=== PATIENT | female | born 2000 | race African-American/Black ===

== ENCOUNTER 2021-03-27 09:13 | Emergency (ER) | payer OTHER ==
[~2021-03-27] VITALS: Ht 157.5 cm; Wt 56.2 kg
[2021-03-27 09:21] VITALS: BP 132/90
--- NOTE | 2021-03-27 09:27 | NUR ---
BIB SELF C/O RIGHT UPPER TOOTH PAIN X 4 DAYS AND C/O RIGHT FACE SWELLING X 2 DAYS. PMH: ASTHMA
--- NOTE | 2021-03-27 09:48 | NUR ---
Patient being evaluated by DR SHAH at [facility].
[2021-03-27] MEDS ORDERED: HYDROcodone/APAP 5/325 MG 1 TAB TAB PO ONE (09:55)
[2021-03-27] MEDS ORDERED: CLIN300C2 PO (10:27)
[2021-03-27] MEDS ORDERED: ACET-8386 PO (10:27)
--- NOTE | 2021-03-27 10:40 | NUR ---
Patient discharged with v/s stable. Written and verbal after care instructions given and explained. Patient alert, oriented and verbalized understanding of instructions. Ambulatory with steady gait. All questions addressed prior to discharge. ID band removed. Patient advised to follow up with PMD. Rx of norco, clindamycin given. Patient educated on indication of medication including possible reaction and side effects. Opportunity to ask questions provided and answered.
== END 2021-03-27 10:40 | disposition home or self-care (01) ==
LOC: MED 09:13
DX: K04.7 Periapical abscess without sinus (principal); L03.211 Cellulitis of face; J45.909 Unspecified asthma, uncomplicated; Z79.891 Long term (current) use of opiate analgesic; Z79.2 Long term (current) use of antibiotics; Z88.1 Allergy status to other antibiotic agents
CPT/HCPCS: 99283